=== PATIENT | male | born 1930 | race African-American/Black ===

== ENCOUNTER → 2016-09-07 | Outpatient (CLI) | payer MEDICARE, MEDICAID | END | disposition home or self-care (01) | LOC: LAB 07:43 | DX: E55.9 Vitamin D deficiency, unspecified (principal) | CPT/HCPCS: 82306 ==

== ENCOUNTER → 2016-12-02 | Outpatient (CLI) | payer MEDICARE, MEDICAID ==
[2016-12-02 14:16] LABS: Basophils # (auto) 0 uL; Basophils % (auto) 0.4 % (0.0-2.0); CONDITION Y; Eosinophils # (auto) 0.2 uL; Eosinophils % (auto) 3.8 % (0.0-7.0); Hematocrit 42.7 % (41.0-53.0); Hemoglobin 14.1 g/dL (13.5-17.5); Lymphocytes # (auto) 1.4 uL; Lymphocytes % (auto) 25.4 % (10.0-50.0); Mean Corpuscular Hemoglobin 31.1 pg (28.0-32.0); Mean Corpuscular Volume 94.3 fL (80.0-100.0); Mean Platelet Volume 9.6 fL (7.4-10.4); Monocytes # (auto) 0.7 uL; Monocytes % (auto) 13.5 % (0.0-12.0); Neutrophils # (auto) 3.1 uL; Neutrophils % (auto) 56.9 % (37.0-80.0); Platelet Count (auto) 227 10^3/uL (140-450); White Blood Cell 5.5 10^3/uL (4.4-10.8)
[2016-12-02 14:45] LABS: Albumin 3.9 g/dL (3.4-5.0); BUN/Creatinine Ratio 15.8; Bilirubin, Total 0.6 mg/dL (0.2-1.0); Potassium 4.2 mmol/L (3.5-5.1); Total Protein 7.7 g/dL (6.4-8.2)
== END | disposition home or self-care (01) ==
LOC: LAB 13:08
PROVIDERS: ATTEND Internal Medicine
DX: I10 Essential (primary) hypertension (principal); F11.20 Opioid dependence, uncomplicated
CPT/HCPCS: 36415; 80053; 80307; 85025

== ENCOUNTER → 2017-02-12 | Day surgery (SDC) | payer MEDICARE, MEDICAID ==
[2017-02-09 10:34] LABS: Basophils # (auto) 0 uL; Basophils % (auto) 0.9 % (0.0-2.0); Eosinophils # (auto) 0.2 uL; Eosinophils % (auto) 4.5 % (0.0-7.0); Hematocrit 42.4 % (41.0-53.0); Hemoglobin 14.1 g/dL (13.5-17.5); Lymphocytes # (auto) 1.4 uL; Mean Corpuscular Hemoglobin 31.5 pg (28.0-32.0); Mean Corpuscular Hgb Conc. 33.2 g/dL (32.0-36.0); Mean Corpuscular Volume 94.7 fL (80.0-100.0); Mean Platelet Volume 8.5 fL (6.9-10.8); Monocytes # (auto) 0.7 uL; Monocytes % (auto) 15.8 % (0.0-12.0); Neutrophils % (auto) 46.8 % (37.0-80.0); Nucleated Red Blood Cells % 0.1 %; Platelet Count (auto) 198 10^3/uL (140-450); Red Cell Distribution Width 13.9 % (11.8-14.3); White Blood Cell 4.3 10^3/uL (4.4-10.8)
[2017-02-09 13:02] LABS: INR 0.97 (0.9-1.15); Partial Thromboplastin Time 30.7 sec (22.64-33.71); Prothrombin Time 10.6 sec (9.37-12.3)
[~2017-02-12] VITALS: Ht 180.3 cm; Wt 83.5 kg
[~2017-02-12] MED LIST: ASPI81TA27 PO; BENA5TAB5 PO; CITA-77 PO; ERGO1CAP6 PO; HYDR-4663 PO; LIDOCAINE VISCOUS 2% 15ML UD ONE; SIMV-8 PO; SODIUM CHLORIDE LOCK 10 ML ONE; diphenhdrAMINE HCL 50 MG/1 ML VL ONE
[2017-02-12] MEDS: fentaNYL CITRATE 100 MCG/2 ML VL ONE ×2 (10:07→10:29)
[2017-02-12] MEDS: MIDAZOLAM HCL 5 MG/ML-1ML VIAL ONE ×2 (10:07→10:29)
[2017-02-12 11:08] VITALS: BP 127/66
== END | disposition home or self-care (01) ==
LOC: GI 09:30
PROVIDERS: ATTEND Internal Medicine Gastroenterology
DX: K64.8 Other hemorrhoids (principal); K20.9 Esophagitis, unspecified; K22.8 Other specified diseases of esophagus; C61 Malignant neoplasm of prostate
CPT/HCPCS: 36415; 43239; 43248; 45378; 85025; 85610; 85730; J1200; J2250; J3010; 99152

== ENCOUNTER → 2017-03-15 | Outpatient (CLI) | payer MEDICARE, MEDICAID ==
[~2017-03-15] MED LIST changes: -HYDR-4663 PO; +HYDR-4683 PO; -LIDOCAINE VISCOUS 2% 15ML UD ONE; -SODIUM CHLORIDE LOCK 10 ML ONE; -diphenhdrAMINE HCL 50 MG/1 ML VL ONE
== END | disposition home or self-care (01) ==
LOC: LAB 13:48
DX: M25.462 Effusion, left knee (principal); M06.9 Rheumatoid arthritis, unspecified; M00.9 Pyogenic arthritis, unspecified; M10.00 Idiopathic gout, unspecified site; I10 Essential (primary) hypertension; E11.9 Type 2 diabetes mellitus without complications
CPT/HCPCS: 87205; 89051; 89060

== ENCOUNTER → 2017-04-12 | Outpatient (CLI) | payer MEDICARE, MEDICAID ==
[2017-04-12 08:25] LABS: Albumin 3.6 g/dL (3.4-5.0); BUN/Creatinine Ratio 14.2; Bilirubin, Total 0.6 mg/dL (0.2-1.0); Calcium 8.6 mg/dL (8.5-10.1); Potassium 4.5 mmol/L (3.5-5.1); Total Protein 7.2 g/dL (6.4-8.2)
== END | disposition home or self-care (01) ==
LOC: LAB 07:39
PROVIDERS: ATTEND Internal Medicine
DX: I10 Essential (primary) hypertension (principal); N40.0 Benign prostatic hyperplasia without lower urinary tract symptoms
CPT/HCPCS: 36415; 80053; 82607; 84153

== ENCOUNTER → 2017-07-02 | Outpatient (CLI) | payer MEDICARE, MEDICAID ==
[2017-07-02 10:17] LABS: Basophils # (auto) 0 uL; Basophils % (auto) 0.3 % (0.0-2.0); Eosinophils # (auto) 0.1 uL; Hematocrit 42.6 % (41.0-53.0); Lymphocytes # (auto) 1.4 uL; Lymphocytes % (auto) 27.1 % (10.0-50.0); Mean Corpuscular Hemoglobin 30.8 pg (28.0-32.0); Mean Corpuscular Hgb Conc. 32.8 g/dL (32.0-36.0); Mean Corpuscular Volume 93.9 fL (80.0-100.0); Monocytes # (auto) 0.8 uL; Monocytes % (auto) 15.5 % (0.0-12.0); Neutrophils # (auto) 2.8 uL; Neutrophils % (auto) 55.1 % (37.0-80.0); Platelet Count (auto) 227 10^3/uL (140-450); Red Blood Cells 4.53 10^6/uL (4.5-5.90); Red Cell Distribution Width 13.3 % (11.8-14.3); White Blood Cell 5.1 10^3/uL (4.4-10.8)
[2017-07-02 13:48] LABS: Uric Acid 5.7 mg/dL (3.5-7.2)
[2017-07-02 14:12] LABS: Albumin 3.7 g/dL (3.4-5.0); BUN/Creatinine Ratio 14.4; Bilirubin, Total 0.6 mg/dL (0.2-1.0); Calcium 8.8 mg/dL (8.5-10.1); Potassium 4.2 mmol/L (3.5-5.1); Total Protein 7.6 g/dL (6.4-8.2)
== END | disposition home or self-care (01) ==
LOC: LAB 09:10
PROVIDERS: ATTEND Internal Medicine
DX: I10 Essential (primary) hypertension (principal); E78.00 Pure hypercholesterolemia, unspecified; R73.03 Prediabetes
CPT/HCPCS: 36415; 80053; 83036; 84550; 85025

== ENCOUNTER → 2017-11-16 | Outpatient (CLI) | payer MEDICARE, MEDICAID ==
[2017-11-16 14:26] LABS: Basophils # (auto) 0 uL; Basophils % (auto) 0.6 % (0.0-2.0); Eosinophils # (auto) 0.2 uL; Eosinophils % (auto) 3.3 % (0.0-7.0); Hematocrit 40.3 % (41.0-53.0); Hemoglobin 13.1 g/dL (13.5-17.5); Lymphocytes # (auto) 1.7 uL; Lymphocytes % (auto) 33.6 % (10.0-50.0); Mean Corpuscular Hemoglobin 30.5 pg (28.0-32.0); Mean Corpuscular Hgb Conc. 32.6 g/dL (32.0-36.0); Mean Corpuscular Volume 93.5 fL (80.0-100.0); Monocytes # (auto) 0.7 uL; Monocytes % (auto) 13.1 % (0.0-12.0); Neutrophils # (auto) 2.5 uL; Neutrophils % (auto) 49.4 % (37.0-80.0); Nucleated Red Blood Cells % 0.1 %; Platelet Count (auto) 179 10^3/uL (140-450); Red Blood Cells 4.31 10^6/uL (4.5-5.90); Red Cell Distribution Width 13.5 % (11.8-14.3)
[2017-11-16 14:59] LABS: Albumin 3.8 g/dL (3.4-5.0); Bilirubin, Total 0.4 mg/dL (0.2-1.0); Calcium 8.7 mg/dL (8.5-10.1); Potassium 4.4 mmol/L (3.5-5.1); Total Protein 7.2 g/dL (6.4-8.2)
[2017-11-16 15:37] LABS: Free T4 (Free Thyroxine) 0.95 ng/dL (0.89-1.76)
[2017-11-16 15:38] LABS: Prostate Specific Antigen 0.07 ng/mL (0.0-4.0)
== END | disposition home or self-care (01) ==
LOC: LAB 14:09
PROVIDERS: ATTEND Internal Medicine
DX: R63.4 Abnormal weight loss (principal); I12.9 Hypertensive chronic kidney disease with stage 1 through stage 4 chronic kidney disease, or unspecified chronic kidney disease; E11.22 Type 2 diabetes mellitus with diabetic chronic kidney disease; N18.3 Chronic kidney disease, stage 3 (moderate); E78.00 Pure hypercholesterolemia, unspecified; Z85.46 Personal history of malignant neoplasm of prostate
CPT/HCPCS: 36415; 80053; 84153; 84439; 84443; 85025; 85652

== ENCOUNTER → 2018-02-24 | Outpatient (CLI) | payer MEDICARE, MEDICAID ==
[2018-02-24 08:52] LABS: Basophils # (auto) 0 uL; Basophils % (auto) 0.5 % (0.0-2.0); Eosinophils # (auto) 0.1 uL; Eosinophils % (auto) 3.2 % (0.0-7.0); Hematocrit 41.6 % (41.0-53.0); Hemoglobin 13.7 g/dL (13.5-17.5); Lymphocytes # (auto) 1.2 uL; Lymphocytes % (auto) 28.8 % (10.0-50.0); Mean Corpuscular Hemoglobin 31.3 pg (28.0-32.0); Mean Corpuscular Hgb Conc. 32.9 g/dL (32.0-36.0); Mean Corpuscular Volume 95.1 fL (80.0-100.0); Monocytes # (auto) 0.6 uL; Monocytes % (auto) 14.8 % (0.0-12.0); Neutrophils # (auto) 2.3 uL; Neutrophils % (auto) 52.7 % (37.0-80.0); Nucleated Red Blood Cells % 0.1 %; Platelet Count (auto) 170 10^3/uL (140-450); Red Blood Cells 4.37 10^6/uL (4.5-5.90); Red Cell Distribution Width 13.5 % (11.8-14.3); White Blood Cell 4.3 10^3/uL (4.4-10.8)
[2018-02-24 08:55] LABS: Urine Bacteria NONE SEEN /hpf (None Seen); Urine Blood Negative /uL (Negative); Urine Specific Gravity 1.016 (1.001-1.035); Urine WBC <1 /hpf (0 - 3)
[2018-02-24 09:01] LABS: INR 0.98 (0.9-1.15); Prothrombin Time 10.5 sec (9.27-12.13)
[2018-02-24 09:13] LABS: Potassium 4.3 mmol/L (3.5-5.1)
[2018-02-24 09:19] LABS: Albumin 3.5 g/dL (3.4-5.0); BUN/Creatinine Ratio 16.6; Calcium 8.2 mg/dL (8.5-10.1)
[2018-02-24 09:28] LABS: Bilirubin, Total 1.2 mg/dL (0.2-1.0); Total Protein 7.4 g/dL (6.4-8.2)
== END | disposition home or self-care (01) ==
LOC: LAB 08:15
PROVIDERS: ATTEND Internal Medicine
DX: Z01.818 Encounter for other preprocedural examination (principal); E78.5 Hyperlipidemia, unspecified; E11.22 Type 2 diabetes mellitus with diabetic chronic kidney disease; I12.9 Hypertensive chronic kidney disease with stage 1 through stage 4 chronic kidney disease, or unspecified chronic kidney disease; N18.3 Chronic kidney disease, stage 3 (moderate); E78.00 Pure hypercholesterolemia, unspecified; Z85.46 Personal history of malignant neoplasm of prostate
CPT/HCPCS: 36415; 80053; 80061; 81001; 85025; 85610

== ENCOUNTER → 2018-05-31 | Outpatient (CLI) | payer MEDICARE, MEDICAID ==
[2018-05-31 09:09] LABS: Basophils # (auto) 0 uL; Basophils % (auto) 0.7 % (0.0-2.0); Eosinophils # (auto) 0.2 uL; Eosinophils % (auto) 5.7 % (0.0-7.0); Hematocrit 42.3 % (41.0-53.0); Lymphocytes # (auto) 1.2 uL; Lymphocytes % (auto) 26.7 % (10.0-50.0); Mean Corpuscular Hemoglobin 31.6 pg (28.0-32.0); Mean Corpuscular Hgb Conc. 33.1 g/dL (32.0-36.0); Mean Corpuscular Volume 95.5 fL (80.0-100.0); Monocytes # (auto) 0.6 uL; Monocytes % (auto) 14.4 % (0.0-12.0); Neutrophils # (auto) 2.3 uL; Neutrophils % (auto) 52.5 % (37.0-80.0); Nucleated Red Blood Cells % 0.1 %; Platelet Count (auto) 196 10^3/uL (140-450); Red Blood Cells 4.43 10^6/uL (4.5-5.90); Red Cell Distribution Width 13.6 % (11.8-14.3); White Blood Cell 4.3 10^3/uL (4.4-10.8)
[2018-05-31 09:29] LABS: Albumin 3.6 g/dL (3.4-5.0); Calcium 8.6 mg/dL (8.5-10.1); Potassium 4.6 mmol/L (3.5-5.1)
[2018-05-31 09:33] LABS: BUN/Creatinine Ratio 16.8; Bilirubin, Total 0.7 mg/dL (0.2-1.0); Total Protein 7.4 g/dL (6.4-8.2)
== END | disposition home or self-care (01) ==
LOC: LAB 08:51
PROVIDERS: ATTEND Internal Medicine
DX: I10 Essential (primary) hypertension (principal); R29.6 Repeated falls; E11.9 Type 2 diabetes mellitus without complications
CPT/HCPCS: 36415; 80053; 82550; 83036; 84439; 84443; 85025

== ENCOUNTER → 2018-09-30 | Outpatient (CLI) | payer MEDICARE, MEDICAID ==
[2018-09-30 08:58] LABS: Basophils # (auto) 0 uL; Basophils % (auto) 0.6 % (0.0-2.0); Eosinophils # (auto) 0.2 uL; Eosinophils % (auto) 4.7 % (0.0-7.0); Hematocrit 40.6 % (41.0-53.0); Hemoglobin 13.6 g/dL (13.5-17.5); Lymphocytes # (auto) 1.4 uL; Lymphocytes % (auto) 29.8 % (10.0-50.0); Mean Corpuscular Hemoglobin 31.4 pg (28.0-32.0); Mean Corpuscular Hgb Conc. 33.4 g/dL (32.0-36.0); Mean Corpuscular Volume 94.1 fL (80.0-100.0); Monocytes # (auto) 0.6 uL; Monocytes % (auto) 12.6 % (0.0-12.0); Neutrophils # (auto) 2.4 uL; Neutrophils % (auto) 52.3 % (37.0-80.0); Nucleated Red Blood Cells % 0.2 %; Platelet Count (auto) 151 10^3/uL (140-450); Red Blood Cells 4.31 10^6/uL (4.5-5.90); Red Cell Distribution Width 13.3 % (11.8-14.3); White Blood Cell 4.6 10^3/uL (4.4-10.8)
[2018-09-30 10:00] LABS: Potassium 4.3 mmol/L (3.5-5.1)
[2018-09-30 10:13] LABS: Albumin 3.7 g/dL (3.4-5.0); BUN/Creatinine Ratio 15.5; Bilirubin, Total 0.6 mg/dL (0.2-1.0); Calcium 8.8 mg/dL (8.5-10.1); Total Protein 7.2 g/dL (6.4-8.2)
== END | disposition home or self-care (01) ==
LOC: LAB 08:03
PROVIDERS: ATTEND Internal Medicine
DX: E11.9 Type 2 diabetes mellitus without complications (principal)
CPT/HCPCS: 36415; 80053; 83036; 85025

== ENCOUNTER → 2019-01-27 | Outpatient (CLI) | payer MEDICARE, MEDICAID ==
[~2019-01-27] MED LIST changes: +ASPI-404 PO; -ASPI81TA27 PO; -HYDR-4683 PO; +HYDR-4833 PO
[2019-01-27 09:27] LABS: Basophils # (auto) 0 uL; Basophils % (auto) 0.5 % (0.0-2.0); Eosinophils # (auto) 0.2 uL; Eosinophils % (auto) 4.9 % (0.0-7.0); Hematocrit 42.5 % (41.0-53.0); Lymphocytes # (auto) 1.2 uL; Lymphocytes % (auto) 30.5 % (10.0-50.0); Mean Corpuscular Hemoglobin 31.3 pg (28.0-32.0); Mean Corpuscular Volume 94.8 fL (80.0-100.0); Monocytes # (auto) 0.6 uL; Neutrophils % (auto) 50.1 % (37.0-80.0); Nucleated Red Blood Cells % 0.1 %; Platelet Count (auto) 175 10^3/uL (140-450); Red Blood Cells 4.48 10^6/uL (4.5-5.90); Red Cell Distribution Width 13.5 % (11.8-14.3); White Blood Cell 4.1 10^3/uL (4.4-10.8)
[2019-01-27 09:45] LABS: Albumin 3.7 g/dL (3.4-5.0); Calcium 8.7 mg/dL (8.5-10.1); Potassium 4.1 mmol/L (3.5-5.1)
[2019-01-27 09:51] LABS: Free T4 (Free Thyroxine) 0.9 ng/dL (0.89-1.76); Prostate Specific Antigen 0.07 ng/mL (0.0-4.0)
[2019-01-27 09:52] LABS: Bilirubin, Total 0.5 mg/dL (0.2-1.0); Total Protein 7.2 g/dL (6.4-8.2)
== END | disposition home or self-care (01) ==
LOC: LAB 08:38
PROVIDERS: ATTEND Internal Medicine
DX: E53.8 Deficiency of other specified B group vitamins (principal); E11.29 Type 2 diabetes mellitus with other diabetic kidney complication; Z79.899 Other long term (current) drug therapy
CPT/HCPCS: 36415; 80053; 80061; 82306; 82607; 83036; 84153; 84439; 84443; 85025; 85652

== ENCOUNTER 2019-02-23 09:02 | Inpatient (IN) | payer MEDICARE, MEDICAID ==
[~2019-02-23] VITALS: Ht 182.9 cm; Wt 76.3 kg
[2019-02-23] MEDS ORDERED: SODIUM CHLORIDE 0.9% 500 ML IVB ONE (09:28)
[2019-02-23 09:46] LABS: Basophils # (auto) 0 uL; Basophils % (auto) 0.5 % (0.0-2.0); Eosinophils # (auto) 0.2 uL; Eosinophils % (auto) 5.2 % (0.0-7.0); Hematocrit 43.4 % (41.0-53.0); Hemoglobin 14.5 g/dL (13.5-17.5); Lymphocytes # (auto) 1.3 uL; Lymphocytes % (auto) 30.9 % (10.0-50.0); Mean Corpuscular Hemoglobin 31.8 pg (28.0-32.0); Mean Corpuscular Hgb Conc. 33.5 g/dL (32.0-36.0); Mean Corpuscular Volume 94.9 fL (80.0-100.0); Monocytes # (auto) 0.5 uL; Neutrophils # (auto) 2.1 uL; Neutrophils % (auto) 50.4 % (37.0-80.0); Nucleated Red Blood Cells % 0.2 %; Platelet Count (auto) 180 10^3/uL (140-450); Red Blood Cells 4.57 10^6/uL (4.5-5.90); Red Cell Distribution Width 13.6 % (11.8-14.3); White Blood Cell 4.1 10^3/uL (4.4-10.8)
[2019-02-23 10:01] LABS: Albumin 3.7 g/dL (3.4-5.0); Anion Gap 4 (5-15); Blood Urea Nitrogen 22 mg/dL (7-18); Calcium 8.7 mg/dL (8.5-10.1); Carbon Dioxide 25 mmol/L (21-32); Chloride 110 mmol/L (98-107); Glucose 87 mg/dL (74-106); Potassium 4.3 mmol/L (3.5-5.1); Sodium 139 mmol/L (136-145)
[2019-02-23 10:06] LABS: Alanine Aminotransferase 11 U/L (16-61); Alkaline Phosphatase 132 U/L (45-117); Aspartate Aminotransferase 19 U/L (15-37); BUN/Creatinine Ratio 13.7; Bilirubin, Total 0.7 mg/dL (0.2-1.0); GFR African American 52 mL/min; GFR Non-African American 43 mL/min; Total Protein 7.6 g/dL (6.4-8.2)
[2019-02-23 12:44] LABS: Urine WBC None Seen /hpf (0 - 3)
[2019-02-23 12:51] LABS: Urine Bacteria NONE SEEN /hpf (None Seen); Urine Blood Negative /uL (Negative); Urine Specific Gravity 1.012 (1.001-1.035)
[2019-02-23] MEDS ORDERED: ONDANSETRON HCL 4 MG/2 ML VIAL IV PRN (14:45)
[2019-02-23] MEDS ORDERED: traMADol HCL 50 MG TAB PO PRN (14:45)
[2019-02-23] MEDS ORDERED: TEMAZEPAM 15 MG CAP PO PRN (14:45)
[2019-02-23] MEDS ORDERED: LACTULOSE 20Gm/30ML SOLN PO PRN (14:45)
[2019-02-23] MEDS ORDERED: MORPHINE SULF INJ 2 MG/ML SYRINGE 1ML IV PRN (14:45)
[2019-02-23] MEDS ORDERED: NITROGLYCERIN 0.4 MG SL TAB SL PRN (14:45)
[2019-02-23] MEDS ORDERED: ACETAMINOPHEN 500 MG TAB PO PRN (14:45)
--- NOTE | 2019-02-23 17:27 | NUR ---
Telemetry admit from ER DANIEL RAIN admitted to Telemetry unit after SBAR received. Patient oriented to TOI REESE RN primary RN, unit, room, bed, and unit policies regarding patient care and visiting hours. Patient now on continuous telemetry monitoring, tele box # 27 . Patient encouraged to call if they need something. All questions and concerns addressed, patient verbalized understanding.
[2019-02-23] MEDS: LABETALOL HCL 5 MG/ML ML 20ML VIAL IV PRN (17:58)
--- NOTE | 2019-02-23 18:36 | NUR ---
Re: Complaining of Nausea Patient complaining of nausea at this time. Brought patient some zofran for the nausea. However, patient refused medication.
--- NOTE | 2019-02-23 19:07 | NUR ---
Closing Shift Note Patient is resting in bed with visitors at bedside. Patient denies pain and nausea. Patient only feels dizzy when attempting to stand up. Report given to [employer] restaurant shift leader RN. Will endorse care to the restaurant shift leader RNTaj.
[2019-02-23 21:12] VITALS: BP 132/70
[2019-02-24 04:30] VITALS: BP 122/68
--- NOTE | 2019-02-24 05:10 | NUR ---
Scheduled EKG performed and placed in cardio tab of hard chart.
--- NOTE | 2019-02-24 07:30 | NUR ---
Opening Shift Note Assuming care of patient at this time. Patient is awake and alert. Patient denies pain. Patient shows no signs or symptoms of distress or shortness of breath. Bed is locked and lowered with bed alarm on. Instructed patient on the plan of care for today and to call for assistance as needed. Call light within reach. Will continue to round hourly and as needed.
[2019-02-24 09:00] VITALS: BP 149/78
[2019-02-24] MEDS ORDERED: ASPirin 81 mg TAB PO SCH (10:00)
[2019-02-24] MEDS: PANTOPRAZOLE 40 MG TAB PO SCH (10:24)
[2019-02-24] MEDS: ASPirin 81 mg TAB PO SCH (10:24)
[2019-02-24] MEDS: ENALAPRIL MALEATE 10 MG TAB PO SCH (10:25)
[2019-02-24] MEDS: ENOXAPARIN SOD 30 MG/0.3 ML SYRINGE SC SCH (10:28)
[2019-02-24 12:03] LABS: Cholesterol 129 mg/dL (< 200); Triglycerides 65 mg/dL (< 150)
[2019-02-24 12:06] LABS: HDL Cholesterol 57 mg/dL (40-59); LDL Cholesterol 68 mg/dL (< 100)
[2019-02-24 12:55] VITALS: BP 138/76
[2019-02-24 13:21] LABS: Folate (Folic Acid) 9.37 ng/mL (5.38-24)
--- NOTE | 2019-02-24 16:00 | NUR ---
Re: Cardiology Consult Dr. Rodriguez called at this time. Patient is a Dr. Santa patient. Dr. Rodriguez would like for Dr. Santa to be called instead. receptionist secretary aware.
[2019-02-24 17:00] VITALS: BP 124/74
--- NOTE | 2019-02-24 19:02 | NUR ---
Closing Shift Note Patient is resting in bed. Patient denies pain. Patient shows no signs or symptoms of distress. Report given to Taj claims processor RN. Will endorse care.
[2019-02-24 22:00] VITALS: BP 146/87
[2019-02-24] MEDS: ATORVASTATIN 20 MG TAB PO SCH (22:00)
[2019-02-25 05:44] VITALS: BP 126/70
--- NOTE | 2019-02-25 08:10 | NUR ---
OPENING SHIFT NOTE: PATIENT RESTING IN BED, EVEN AN UNLABORED RESPIRATIONS NOTED. FALL PRECAUTIONS IN PLACE. CALL LIGHT WITHIN REACH. WILL CONTINUE TO MONITOR.
[2019-02-25 09:00] VITALS: BP 138/73
[2019-02-25] MEDS: ASPirin 81 mg TAB PO SCH (09:08)
[2019-02-25] MEDS: ENOXAPARIN SOD 30 MG/0.3 ML SYRINGE SC SCH (09:08)
[2019-02-25] MEDS: ENALAPRIL MALEATE 10 MG TAB PO SCH (09:09)
[2019-02-25] MEDS: PANTOPRAZOLE 40 MG TAB PO SCH (09:09)
[2019-02-25] MEDS: CITALOPRAM HYDROBR 20 MG TAB PO SCH (09:10)
--- NOTE | 2019-02-25 11:08 | NUR ---
Nutrition Assessment Notes please see attached link for complete assessment Est. Needs BW [id number] kcal (25-30 kcal/kgBW), 62-77 gms pro (0.8-1.0 gms/kgBW r/t elev RFT CKD). Will continue to monitor pertinent labs and reassess nutrient need prn Addendum: 02/25/19 at [address] Amended: Links added.
[2019-02-25 13:00] VITALS: BP 143/88
--- NOTE | 2019-02-25 14:43 | NUR ---
CALLED. PASSWORD RECEIVED. UPDATED ON PLAN OF CARE.
[2019-02-25 17:00] VITALS: BP 127/74
--- NOTE | 2019-02-25 17:30 | NUR ---
CONSULT CALLED FOR MD MARIN BY THIS RN.
--- NOTE | 2019-02-25 18:24 | NUR ---
CLOSING SHIFT NOTE: PATIENT EATING DINNER AT SIDE OF THE BED. FAMILY AT BEDSIDE. BREATHING EVEN AND UNLABORED. UPDATED ON PLAN OF CARE, ADDRESSED CONCERNS. BED IN LOWEST LOCKED POSITION, AND CALL LIGHT WITHIN REACH. WILL ENDORSE CARE TO NOC RN.
--- NOTE | 2019-02-25 19:23 | NUR ---
CARE ENDORSED TO DEMI SUAZO.
--- NOTE | 2019-02-25 19:54 | NUR ---
Opening Shift Note Assumed care of patient, awake and alert. No S/S of distress/SOB or pain. Instructed on POC and to call for assist PRN, will continue to monitor for changes Q1hr and PRN.bed alarm on.
[2019-02-25] MEDS: ATORVASTATIN 20 MG TAB PO SCH (21:25)
[2019-02-25 21:32] VITALS: BP 163/87
[2019-02-25] MEDS: LABETALOL HCL 5 MG/ML ML 20ML VIAL IV PRN (21:33)
[2019-02-26 05:01] VITALS: BP 113/56
--- NOTE | 2019-02-26 07:03 | NUR ---
Report given to Ramila Rob, patient is resting no distress, no complaints of pain the whole night.
--- NOTE | 2019-02-26 07:12 | NUR ---
OPENING SHIFT NOTE: PATIENT ASLEEP IN BED. BREATHING EVEN AND UNLABORED. BED IN LOWEST LOCKED POSITION, WALKER AT BEDSIDE. CALL LIGHT WITHIN REACH. CARE BOARD UPDATED WITH PLAN OF CARE. WILL CONTINUE TO MONITOR.
--- NOTE | 2019-02-26 08:39 | NUR ---
MD Darrin FOLEY. UPDATED PATIENT ON PLAN FOR BUSINESS ACCOUNT MANAGER DR. MAYA TO CONSULT PATIENT TODAY. PATIENT VERBALIZED UNDERSTANDING.
[2019-02-26 09:00] VITALS: BP 131/57
[2019-02-26] MEDS: CITALOPRAM HYDROBR 20 MG TAB PO SCH (09:34)
[2019-02-26] MEDS: ASPirin 81 mg TAB PO SCH (09:34)
[2019-02-26] MEDS: PANTOPRAZOLE 40 MG TAB PO SCH (09:35)
[2019-02-26] MEDS: ENOXAPARIN SOD 30 MG/0.3 ML SYRINGE SC SCH (09:35)
[2019-02-26] MEDS: ENALAPRIL MALEATE 10 MG TAB PO SCH (09:35)
--- NOTE | 2019-02-26 12:20 | NUR ---
DR. MAYA AT BEDSIDE. NO ORDERS GIVEN AT THIS TIME.
--- NOTE | 2019-02-26 15:40 | NUR ---
MD MARIN ROUNDING.
[2019-02-26 16:50] VITALS: BP 134/74
--- NOTE | 2019-02-26 18:52 | NUR ---
CLOSING SHIFT NOTE: PATIENT RESTING IN BED. UPDATED FAMILY AND PATIENT ON PLAN OF CARE. EVEN AND UNLABORED RESPIRATIONS NOTED. WILL ENDORSE CARE TO NOC RN.
--- NOTE | 2019-02-26 19:25 | NUR ---
ENDORSED CARE TO BOWEN SUAZO.
--- NOTE | 2019-02-26 19:27 | NUR ---
Opening Shift Note Assumed care of patient, awake and alert. No S/S of distress/SOB or pain. Bed in lowest locked position, side rails up x2, call light within reach, bed alarm on. Instructed on POC and to call for assist PRN, will continue to monitor for changes Q1hr and PRN.
[2019-02-26] MEDS: ATORVASTATIN 20 MG TAB PO SCH (21:43)
[2019-02-26 22:00] VITALS: BP 123/63
[2019-02-27] VITALS (7 sets, daily range): BP systolic 112–125; BP diastolic 61–69
--- NOTE | 2019-02-27 07:40 | NUR ---
Closing Note Patient lying in bed, awake and alert. No s/s of distress. Bed in lowest locked position, side rails up x 2, call light within reach. Care endorsed to dayshift RN.
--- NOTE | 2019-02-27 08:00 | NUR ---
Opening Shift Note Assumed care of patient, comfortably sleeping. Breath sound seven and unlabored. No S/S of distress/SOB or pain noted. Bed at lowest locked position and call light within reach. Will continue to monitor for changes Q1hr and PRN.
--- NOTE | 2019-02-27 10:31 | NUR ---
PT Patient not in the room during morning PT visit. RN said he was brought down for an MRI. Addendum: 02/27/19 at 1032 by NICOL CARRANZA PTT Amended: Links added.
[2019-02-27] MEDS: CITALOPRAM HYDROBR 20 MG TAB PO SCH (11:19)
[2019-02-27] MEDS: ASPirin 81 mg TAB PO SCH (11:19)
[2019-02-27] MEDS: ENOXAPARIN SOD 30 MG/0.3 ML SYRINGE SC SCH (11:19)
[2019-02-27] MEDS: PANTOPRAZOLE 40 MG TAB PO SCH (11:20)
[2019-02-27] MEDS: ENALAPRIL MALEATE 10 MG TAB PO SCH (11:20)
--- NOTE | 2019-02-27 16:54 | NUR ---
assessment Patient is a 88 year old male who is alert and oriented. Patient is a little forgetful of names and dates. Prior to admission patient lived home with family and functioned with assistance. Per patient he will return home to his prior living arrangements post discharge and one of his children will transport him home. Patient does not remember the name of his PCP. Patient has good family support. Patient feels safe returning home on discharge. Patient may benefit from home health PT and safety on discharge. I informed patient he has a right to speak to a manager social regarding all care. I informed patient he has a right to participate in any and all discharge planning. Patient has a POA and advanced directive. Patient verbalized understanding and agreed to discharge plan. Addendum: 02/27/19 at 1659 by Elena MATAMOROS Amended: Links added.
--- NOTE | 2019-02-27 18:40 | NUR ---
Dr. Santa at bedside.
--- NOTE | 2019-02-27 19:25 | NUR ---
Opening Shift Note Received report from Devi SUAZO. Assumed care of patient, awake and alert. No S/S of distress/SOB or pain. Instructed on POC and to call for assist PRN. Fall precaution measures in place, will continue to monitor for changes Q1hr and PRN.
[2019-02-27] MEDS: ATORVASTATIN 20 MG TAB PO SCH (22:06)
[2019-02-28] VITALS (7 sets, daily range): BP systolic 102–136; BP diastolic 50–85
--- NOTE | 2019-02-28 07:30 | NUR ---
Opening Shift Note Assumed care of patient, comfortably sleeping, on room air, breath sounds even and unlabored. No S/S of distress/SOB or pain noted. Bed at lowest locked position and call light within reach. Will continue to monitor for changes Q1hr and PRN.
[2019-02-28 09:18] LABS: Basophils # (auto) 0 uL; Basophils % (auto) 0.5 % (0.0-2.0); Eosinophils # (auto) 0.2 uL; Eosinophils % (auto) 3.7 % (0.0-7.0); Hematocrit 45.4 % (41.0-53.0); Hemoglobin 15.3 g/dL (13.5-17.5); Lymphocytes # (auto) 1.1 uL; Lymphocytes % (auto) 22.8 % (10.0-50.0); Mean Corpuscular Hemoglobin 31.9 pg (28.0-32.0); Mean Corpuscular Hgb Conc. 33.7 g/dL (32.0-36.0); Mean Corpuscular Volume 94.9 fL (80.0-100.0); Monocytes # (auto) 0.7 uL; Monocytes % (auto) 14.4 % (0.0-12.0); Neutrophils # (auto) 2.8 uL; Neutrophils % (auto) 58.6 % (37.0-80.0); Nucleated Red Blood Cells % 0.2 %; Platelet Count (auto) 175 10^3/uL (140-450); Red Blood Cells 4.79 10^6/uL (4.5-5.90); Red Cell Distribution Width 13.4 % (11.8-14.3); White Blood Cell 4.8 10^3/uL (4.4-10.8)
--- NOTE | 2019-02-28 09:24 | NUR ---
Paged for Dr. Santa regarding patient's label paster procedure.
[2019-02-28 09:34] LABS: INR 0.99 (0.9-1.15); Partial Thromboplastin Time 29.9 sec (23.64-32.05)
[2019-02-28 09:40] LABS: BUN/Creatinine Ratio 19.1; Calcium 8.8 mg/dL (8.5-10.1); Potassium 4.4 mmol/L (3.5-5.1)
[2019-02-28] MEDS: PANTOPRAZOLE 40 MG TAB PO SCH (09:49)
[2019-02-28] MEDS: CITALOPRAM HYDROBR 20 MG TAB PO SCH (09:49)
[2019-02-28] MEDS: ENALAPRIL MALEATE 10 MG TAB PO SCH (09:50)
[2019-02-28] MEDS: ASPirin 81 mg TAB PO SCH (09:51)
[2019-02-28] MEDS: ENOXAPARIN SOD 30 MG/0.3 ML SYRINGE SC SCH (09:51)
--- NOTE | 2019-02-28 12:23 | NUR ---
Nutrition Follow-up Notes Wt.: 74.8 kg as of yesterday. Pt's sitting up on bed, eating breakfast, immediate family members at bedside, denies any discomfort during rounds this morning. 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 Pt's usually has good appetite eat meals regularly, NKFA and not into any special diets boat captain. Pt's on 2 gms Na diet with , Low Chol, Low Fat diet with adequate PO intake aeb 90% ave. consumed meals (x6) in last 2.5 days. Provide verbal and written nutrition educ. re: current therapeutic diet and he verbalized understanding.Noted pt's now NPO for a procedure today with active Neurology and Cardiology consults. Est. Needs BW [id number] kcal (25-30 kcal/kgBW), 62-77 gms pro (0.8-1.0 gms/kgBW r/t elev RFT CKD). Will continue to monitor pertinent labs and reassess nutrient need prn Labs: Pertinent labs wnl except for BUN 33 H, Cr 1.73 H Skin: Naveen scale 19, low risk, skin intact per drafter electrical. GI: Pt had 2x BM 02/25/19 per drafter electrical. PES: Increased nutrient needs r/t current/chronic medical/nutritional status aeb 91% IBW, BMI 22.4 kg/m2, decreased muscle mass, NPO. Altered nutrition related lab values r/t current/chronic medical condition aeb elev RFT Will continue to monitor NPO status, skin status, pertinent labs and weight trend. F/u in 2 to 3 days. Rec.: 1.) Resume oral diet (Cardiac: 2 gms Na, Low Chol, Low Fat diet) when medically appropriate. 2.) If pt's PO intake inadequate (<75%), consider Ensure Enlive 1 carton BID. 3.) Refer pt to RD for further nutrition education and weight monitoring upon discharge. 4.) Continue current plan of care
[2019-02-28] MEDS ORDERED: LIDOCAINE 2%HCL (LOCAL ANESTH.) INJ 20ML MDV ONE (13:18)
[2019-02-28] MEDS ORDERED: ceFAZolin 1GM/50ML 50 ML IV ONE ×2 (13:34→21:00)
[2019-02-28] MEDS ORDERED: VANCOMYCIN HCL 1000 MG VL ONE (13:35)
[2019-02-28] MEDS ORDERED: MIDAZOLAM HCL 1MG/1ML-2 ML VIAL ONE (13:35)
[2019-02-28] MEDS ORDERED: fentaNYL CITRATE 100 MCG/2 ML VL ONE (13:35)
[2019-02-28] MEDS ORDERED: VANCOMYCIN 1GM/250ML 250 ML IV ONE (13:36)
--- NOTE | 2019-02-28 18:56 | NUR ---
closing note Patient is sitting up in bed having dinner, left arm is resting nicely on a sling, no c/o pain. No s/s of distress/SOB stated. Bed at lowest locked position, bed side rails up x2 and call light within reach.
--- NOTE | 2019-02-28 19:15 | NUR ---
Opening Shift Note received report from Devi SUAZO. Assumed care of patient, awake and alert. No S/S of distress/SOB or pain. Instructed on POC and to call for assist PRN. Fall precaution measures in place, will continue to monitor for changes Q1hr and PRN.
[2019-02-28] MEDS: ATORVASTATIN 20 MG TAB PO SCH (21:37)
[2019-03-01] MEDS ORDERED: VANCOMYCIN 1GM/250ML 250 ML IV ONE (03:00)
[2019-03-01] MEDS ORDERED: ceFAZolin 1GM/50ML 50 ML IV ONE ×2 (05:00→13:20)
[2019-03-01 06:00] VITALS: BP 130/77
[2019-03-01 08:00] VITALS: BP 126/80
--- NOTE | 2019-03-01 08:08 | NUR ---
RECEIVED CALL FROM RADIOLOGY DR GANN PATIENT HAS NEW PNEUMOTHORAX WILL LET ATTENDING KNOW.
--- NOTE | 2019-03-01 08:25 | NUR ---
CALLED DR RUBIO TO ADVISE OF NEW PNEUMOTHORAX. PATIENT PLACED ON 4 LC NC NO SIGNS AND SYMPTOMS OF DISTRESS NOTED AT THIS TIME. OZ SATURATION IS 94 ON ROOM AIR AND 98 % ON 4 LITERS. PATIENT SITTING UP AT BEDSIDE EATING BREAKFAST.
[2019-03-01 09:00] VITALS: BP 126/80
[2019-03-01] MEDS: ENALAPRIL MALEATE 10 MG TAB PO SCH (10:00)
[2019-03-01] MEDS: ASPirin 81 mg TAB PO SCH (10:00)
[2019-03-01] MEDS: ENOXAPARIN SOD 30 MG/0.3 ML SYRINGE SC SCH (10:00)
[2019-03-01] MEDS: CITALOPRAM HYDROBR 20 MG TAB PO SCH (10:00)
[2019-03-01] MEDS: PANTOPRAZOLE 40 MG TAB PO SCH (10:00)
--- NOTE | 2019-03-01 12:45 | NUR ---
PATIENT TAKEN DOWN TO PRE OP NO SIGNS AND SYMPTOMS OF DISTRESS NOTED.
[2019-03-01] MEDS ORDERED: MIDAZOLAM HCL 1MG/1ML-2 ML VIAL ONE (14:07)
[2019-03-01] MEDS ORDERED: fentaNYL CITRATE 100 MCG/2 ML VL ONE (14:07)
[2019-03-01] MEDS ORDERED: METOCLOPRAMIDE HCL 5MG/ml INJ 2ml VIAL ONE (14:08)
--- NOTE | 2019-03-01 14:27 | NUR ---
PT OUT IN PROCEDURE @ 1300 UNABLE TO OBTAIN VITALS
[2019-03-01 17:00] VITALS: BP 116/62
--- NOTE | 2019-03-01 19:30 | NUR ---
Opening Shift Note Assumed care of patient. Patient is awake and alert. No S/S of distress/SOB or pain. Chest tube intact, patent and draining. Chest tube and pacemaker dressing intact with minimal drainage noted. Instructed on POC and to call for assist PRN, will continue to monitor for changes. Bed locked in lowest position and bed rails up x2. Call light within reach.
[2019-03-01] MEDS: ATORVASTATIN 20 MG TAB PO SCH (21:32)
[2019-03-01 21:41] VITALS: BP 125/63
--- NOTE | 2019-03-02 03:00 | NUR ---
65ml of drainage from chest tube
[2019-03-02 05:17] VITALS: BP 127/71
--- NOTE | 2019-03-02 07:40 | NUR ---
Opening Shift Note Assumed care of patient. Patient is awake and alert. No S/S of distress/SOB or pain. Chest tube intact, patent and draining. Chest tube and pacemaker dressing intact with minimal drainage noted. Bed locked in lowest position and bed rails up x2. Call light within reach. Instructed on POC and to call for assist PRN, will continue to monitor for changes.
[2019-03-02 08:00] VITALS: BP 120/70
[2019-03-02 09:13] VITALS: BP 120/70
[2019-03-02] MEDS: ASPirin 81 mg TAB PO SCH (09:29)
[2019-03-02] MEDS: ENOXAPARIN SOD 30 MG/0.3 ML SYRINGE SC SCH (09:29)
[2019-03-02] MEDS: PANTOPRAZOLE 40 MG TAB PO SCH (09:59)
[2019-03-02] MEDS: CITALOPRAM HYDROBR 20 MG TAB PO SCH (09:59)
[2019-03-02] MEDS: ENALAPRIL MALEATE 10 MG TAB PO SCH (10:00)
[2019-03-02 13:00] VITALS: BP 118/67
--- NOTE | 2019-03-02 14:19 | NUR ---
Nutrition Follow-up Notes Wt.: 76.5 kg as of yesterday. Pt's s/p chest tube insertion yesterday, on oxygen via nasal cannula, asleep, no signs of distress noted when rounded this morning. Pt remains NPO, per nursing, noted for active Surgical consult. Est. Needs BW [id number] kcal (25-30 kcal/kgBW), 62-77 gms pro (0.8-1.0 gms/kgBW r/t elev RFT CKD). Will continue to monitor pertinent labs and reassess nutrient need prn Labs: No new labs since 02/28/19 Pertinent labs wnl except for BUN 33 H, Cr 1.73 H Skin: Naveen scale 16, mod risk, pt's medial chest incision dry and intact per clinical documentation spec. GI: Pt had 1x BM 03/01/19 per clinical documentation spec. PES: Resolved: Increased nutrient needs r/t current/chronic medical/nutritional status aeb 91% IBW, BMI 22.4 kg/m2, decreased muscle mass, NPO. Altered nutrition related lab values r/t current/chronic medical condition aeb elev RFT Will continue to monitor NPO status, skin status, pertinent labs and weight trend. F/u in 2 to 3 days. Rec.: 1.) Resume oral diet (Cardiac: 2 gms Na, Low Chol, Low Fat diet) when medically appropriate. 2.) If pt's PO intake inadequate (<75%), consider Ensure Enlive 1 carton BID. 3.) Consider to continue monitoring pertinent labs prn. 4.) Refer pt to RD for further nutrition education and weight monitoring upon discharge. 5.) Continue current plan of care
[2019-03-02 17:00] VITALS: BP 114/61
--- NOTE | 2019-03-02 19:00 | NUR ---
CHEST TUBE DRAINAGE OUTPUT 40ML.
--- NOTE | 2019-03-02 19:51 | NUR ---
Opening Shift Note Assumed care of patient, awake and alert. No S/S of distress/SOB or pain. Instructed on POC and to call for assist PRN, will continue to monitor for changes Q1hr and PRN.Chest tube in placed, dressing dry and intact in the left side of chest.
[2019-03-02] MEDS: ATORVASTATIN 20 MG TAB PO SCH (21:23)
[2019-03-02 21:30] VITALS: BP 116/64
[2019-03-03 05:00] VITALS: BP 120/67
--- NOTE | 2019-03-03 07:09 | NUR ---
Report given to Ramila Gudino ,patient is resting no distress.
[2019-03-03 07:45] VITALS: BP 128/77
--- NOTE | 2019-03-03 08:45 | NUR ---
Received call from Doctor Blood, wants to continue suction with chest tube (per orders) until Wednesday and have a repeat chest x-ray Wednesday.
[2019-03-03 09:00] VITALS: BP 128/77
[2019-03-03] MEDS: CITALOPRAM HYDROBR 20 MG TAB PO SCH (09:47)
[2019-03-03] MEDS: PANTOPRAZOLE 40 MG TAB PO SCH (09:47)
[2019-03-03] MEDS: ENALAPRIL MALEATE 10 MG TAB PO SCH (09:52)
[2019-03-03] MEDS: ASPirin 81 mg TAB PO SCH (10:00)
[2019-03-03] MEDS: ENOXAPARIN SOD 30 MG/0.3 ML SYRINGE SC SCH (10:00)
--- NOTE | 2019-03-03 12:00 | NUR ---
PATIENT NONCOMPLIANT WITH POST OP PROTCOL V/S. Addendum: 03/03/19 at 1928 by MAYE OLIVAS RN RN wrong patient
--- NOTE | 2019-03-03 12:05 | NUR ---
PATIENT ASKED IF HE COULD SHOWER, PER DOCTOR RUBIO PATIENT IS NOT ALLOWED TO SHOWER, PATIENT STATED HE DOESN'T CARE AND WILL SHOWER ANY WAYS. PATIENT NONCOMPLIANT. Addendum: 03/03/19 at 1930 by MAYE OLIVAS RN RN wrong patient.
[2019-03-03 13:00] VITALS: BP 121/62
[2019-03-03 17:00] VITALS: BP 126/72
--- NOTE | 2019-03-03 19:20 | NUR ---
CHEST TUBE DRAINAGE OUTPUT 35ML.
[2019-03-03] MEDS: ATORVASTATIN 20 MG TAB PO SCH (21:37)
[2019-03-03 22:00] VITALS: BP 123/71
[2019-03-04 05:00] VITALS: BP 122/73
--- NOTE | 2019-03-04 06:56 | NUR ---
Report given Lewis Greenbergpatient is resting no complaints of any distress the whole night. Addendum: 03/04/19 at 0725 by Alyson Long RN Report given to Ramila Saenz, angelito Ruiz
--- NOTE | 2019-03-04 08:00 | NUR ---
PT RESTING IN BED, NO DISTRESS NOTED. PT REPORTS NO PAIN AT THIS TIME. SNEHA CHEST PACEMAKER INCISION SITE SHOWS MINIMAL SANGUINOUS DRAINAGE, CHEST TUBE INCISION SITE SHOWS MINIMAL YELLOW SANGUINOUS DRAINAGE. APPROX 183 MLS SANGUINOUS DRAINAGE NOTED IN CHEST TUBE. CHEST TUBING CONNECTED TO ALL PORTS AND TO SUCTION. PT VOIDED ON CHUCKS. PT NERY AREA CLEANED AND CHUCKS CHANGED. BED ALARM ON , CALL LIGHT IN REACH, WILL CONTINUE TO MONITOR.
[2019-03-04 09:00] VITALS: BP 140/79
[2019-03-04] MEDS: CITALOPRAM HYDROBR 20 MG TAB PO SCH (10:39)
[2019-03-04] MEDS: PANTOPRAZOLE 40 MG TAB PO SCH (10:39)
[2019-03-04] MEDS: ASPirin 81 mg TAB PO SCH (10:40)
[2019-03-04] MEDS: ENALAPRIL MALEATE 10 MG TAB PO SCH (10:41)
[2019-03-04] MEDS: ENOXAPARIN SOD 30 MG/0.3 ML SYRINGE SC SCH (10:43)
--- NOTE | 2019-03-04 11:30 | NUR ---
Nutrition Follow-up Notes Wt.: 77.0 kg Pt's s/p chest tube insertion, sleeping no family by bedside. pt with no signs of distress noted when rounded this morning. Pt`s currently on 2 gm na diet with adequate PO of 75% x 5 per RN doc Est. Needs BW [id number] kcal (25-30 kcal/kgBW), 62-77 gms pro (0.8-1.0 gms/kgBW r/t elev RFT CKD). Will continue to monitor pertinent labs and reassess nutrient need prn Labs: BUN 33 H, CREAT 1.73 H Skin: Naveen scale 18, mod risk, pt's medial chest incision dry and intact per chief scientific officer. GI: Pt had 1x BM 03/03/19 per chief scientific officer. PES: Resolved: Increased nutrient needs r/t current/chronic medical/nutritional status aeb 91% IBW, BMI 22.4 kg/m2, decreased muscle mass, NPO. Altered nutrition related lab values r/t current/chronic medical condition aeb elev RFT Will continue to monitor PO intake, skin status, pertinent labs and weight trend. F/u in 3-5 days. Rec.: 1.) Consider to continue monitoring pertinent labs prn. 2.) Refer pt to RD for further nutrition education and weight monitoring upon discharge. 3.) Continue current plan of care
--- NOTE | 2019-03-04 12:09 | NUR ---
PATIENT WALKED IN HALLWAY WITH PHYSICAL THERAPY AND WALKER.
[2019-03-04 13:00] VITALS: BP 128/75
[2019-03-04 17:12] VITALS: BP 125/64
--- NOTE | 2019-03-04 19:05 | NUR ---
PT CHEST TUBE OUT PUT WAS 183 MLS AT BEGINNING OF SHIFT. OUTPUT AT END OF SHIFT 187. 4 MLS TOTAL DRAINAGE ON SHIFT.
[2019-03-04] MEDS: ATORVASTATIN 20 MG TAB PO SCH (21:03)
[2019-03-04 21:24] VITALS: BP 114/69
[2019-03-05 05:04] VITALS: BP 139/74
--- NOTE | 2019-03-05 07:46 | NUR ---
Opening Shift Note: Assumed care of patient, patient asleep. NC O2 in place, at 4 LMP. No S/S of distress/SOB or pain. Bed in lowest locked position, side rails up x 2, call light within reach. Patient will be instructed on POC and to call for assist PRN, will continue to monitor for changes Q1hr and PRN.
--- NOTE | 2019-03-05 08:20 | NUR ---
Dr. Fry at bedside. Discussed POC with patient. Will continue to monitor patient.
[2019-03-05 09:00] VITALS: BP 126/72
[2019-03-05] MEDS: ENOXAPARIN SOD 30 MG/0.3 ML SYRINGE SC SCH (09:30)
[2019-03-05] MEDS: ASPirin 81 mg TAB PO SCH (09:31)
[2019-03-05] MEDS: ENALAPRIL MALEATE 10 MG TAB PO SCH (09:31)
[2019-03-05] MEDS: PANTOPRAZOLE 40 MG TAB PO SCH (09:31)
[2019-03-05] MEDS: CITALOPRAM HYDROBR 20 MG TAB PO SCH (09:32)
--- NOTE | 2019-03-05 11:52 | NUR ---
Patient ambulated the martinez with physical therapy. Patient tolerated well. Will continue to monitor.
[2019-03-05 13:00] VITALS: BP 108/62
[2019-03-05 17:00] VITALS: BP 110/60
--- NOTE | 2019-03-05 19:05 | NUR ---
25 ML OUT FROM CHEST TUBE DURING DAY SHIFT.
--- NOTE | 2019-03-05 20:00 | NUR ---
Opening Shift Note: A&Ox4, with periods of forgetfulness. Currently on 4LO2 via NC, does not wear at home; pain level 9/10 headache; and currently bedrest; at baseline uses a wheelchair. Bed locked in lowest position, side rails up x2, call light within reach, and bed alarm on for patient safety. IV right forearm 22 g IID inserted on 03/02/19. Skin: pressure area found on sacral area: picture taken for reference and optifoam dressing applied. Will place WC consult. Patient is s/p pacemaker insertion by Dr. Santa on 02/28/19 and s/p chest tube insertion for pneumothorax by Dr. Blood on 03/02/19. Sling on left arm present. POC discussed and questions answered. Will continue to round prn and reposition Q2H.
[2019-03-05 21:04] VITALS: BP 129/72
[2019-03-05] MEDS: ATORVASTATIN 20 MG TAB PO SCH (21:54)
[2019-03-06 04:57] VITALS: BP 111/68
--- NOTE | 2019-03-06 06:30 | NUR ---
Chest tube output 70 ml. Patient states no pain or SOB at this time.
--- NOTE | 2019-03-06 07:22 | NUR ---
Opening Shift Note: Assumed care of patient, awake and alert. No S/S of distress/SOB or pain. Patient states no pain, 0/10. Chest tube set to continuous suction, 20 cm. Bed in lowest locked position, side rails up x 2, call light within reach. Patient instructed on POC and to call for assist PRN, will continue to monitor for changes Q1hr and PRN.
--- NOTE | 2019-03-06 07:42 | NUR ---
Patient off unit for xray.
--- NOTE | 2019-03-06 08:01 | NUR ---
Patient back to unit, in bed. Patient tolerated well. Patient placed back on 4 L NC. Chest tube connected to suction.
--- NOTE | 2019-03-06 08:07 | NUR ---
Patient ambulates with assistance. Addendum: 03/06/19 at 1206 by PERCY ROBERTSON RN RN Amended: Links added.
[2019-03-06 09:00] VITALS: BP 119/65
[2019-03-06] MEDS: ASPirin 81 mg TAB PO SCH (09:55)
[2019-03-06] MEDS: ENALAPRIL MALEATE 10 MG TAB PO SCH (09:55)
[2019-03-06] MEDS: ENOXAPARIN SOD 30 MG/0.3 ML SYRINGE SC SCH (09:55)
[2019-03-06] MEDS: PANTOPRAZOLE 40 MG TAB PO SCH (09:56)
[2019-03-06] MEDS: CITALOPRAM HYDROBR 20 MG TAB PO SCH (09:56)
--- NOTE | 2019-03-06 10:15 | NUR ---
Dr. Blood at bedside. Removed chest tube. Patient tolerated well. Covered with gauze and Tegaderm. Will continue to monitor patient.
--- NOTE | 2019-03-06 12:25 | NUR ---
WOUND CARE NOTE: Wound care consult placed by nursing for possible pressure injury to coccyx. Patient is an 88 yo male admitted for TIA/Dizziness on 02/23/2019. Patient with a history of dyslipidemia, chronic kidney disease, vascular disease and dementia. Patient is alert and denies pain. Last Naveen score is 14. Per bedside RNBobbi, patient is to discharge home today. Patient is found sitting up in chair. Patient is able to stand up. Photographs taken of gluteal cleft where a small skin tear measuring 2x0.5cm and is shallow and red. Patient states that he spends a lot of time during day up in chair. Provided patient and spouse at bedside pressure relieving strategies and wound care options for home. Sacral foam dressing reapplied. Addendum: 03/06/19 at 1813 by JUNAID TRUJILLO RN Amended: Links added.
[2019-03-06 13:00] VITALS: BP 96/57
--- NOTE | 2019-03-06 13:54 | NUR ---
IV removal: IV DC'd with clean sterile technique, catheter fully intact. Pressure dressing applied to site. Patient tolerated well.
== END 2019-03-06 14:08 | disposition home or self-care (01) | DRG 243 ==
LOC: EDBD 09:02 → ER 09:02 → TELE 09:03 → TELE-CENTR 17:29
PROVIDERS: ADMIT Internal Medicine; ATTEND Family Medicine
PROC: 0JH606Z Insertion of Pacemaker, Dual Chamber into Chest Subcutaneous Tissue and Fascia, Open Approach (ICD-10-PCS; principal; 2019-02-28)
PROC: 02HK3JZ Insertion of Pacemaker Lead into Right Ventricle, Percutaneous Approach (ICD-10-PCS; 2019-02-28)
PROC: 02H63JZ Insertion of Pacemaker Lead into Right Atrium, Percutaneous Approach (ICD-10-PCS; 2019-02-28)
PROC: 0W9B00Z Drainage of Left Pleural Cavity with Drainage Device, Open Approach (ICD-10-PCS; 2019-03-01)
DX: R00.1 Bradycardia, unspecified (principal); N17.9 Acute kidney failure, unspecified; J93.9 Pneumothorax, unspecified; J90 Pleural effusion, not elsewhere classified; G45.9 Transient cerebral ischemic attack, unspecified; E78.5 Hyperlipidemia, unspecified; N18.3 Chronic kidney disease, stage 3 (moderate); I25.10 Atherosclerotic heart disease of native coronary artery without angina pectoris; I13.10 Hypertensive heart and chronic kidney disease without heart failure, with stage 1 through stage 4 chronic kidney disease, or unspecified chronic kidney disease; E11.22 Type 2 diabetes mellitus with diabetic chronic kidney disease; R26.9 Unspecified abnormalities of gait and mobility; E78.00 Pure hypercholesterolemia, unspecified; F03.90 Unspecified dementia, unspecified severity, without behavioral disturbance, psychotic disturbance, mood disturbance, and anxiety; H54.61 Unqualified visual loss, right eye, normal vision left eye; Z79.82 Long term (current) use of aspirin; Z79.899 Other long term (current) drug therapy; Z82.49 Family history of ischemic heart disease and other diseases of the circulatory system; Z83.3 Family history of diabetes mellitus; Z95.0 Presence of cardiac pacemaker
CPT/HCPCS: 33208; 36415; 70450; 71045; 71046; 80048; 80053; 80061; 81001; 82550; 82607; 82746; 82962; 83735; 84443; 84484; 85025; 85610; 85652; 85730; 93005; 93306; 93886; 94761; 96360; 97110; 97116; 97530; 99152; 99153; 99291; C1785; G0378; J0690; J2250; J2405

== ENCOUNTER → 2019-10-04 | Outpatient (CLI) | payer MEDICARE, MEDICAID ==
[~2019-10-04] VITALS: Ht 185.4 cm; Wt 99.8 kg
[~2019-10-04] MED LIST changes: +ADENOSINE 68 MG in GIVE UN-DILUTED 0 ML IV ONE; +ADENOSINE 90 MG/30 ML INJ IV ONE
== END | disposition home or self-care (01) ==
LOC: Rad HDHVI 09:32
PROVIDERS: ATTEND Internal Medicine Cardiovascular Disease
DX: E78.00 Pure hypercholesterolemia, unspecified (principal); I10 Essential (primary) hypertension; Z95.0 Presence of cardiac pacemaker
CPT/HCPCS: 78452; 93005; 96374; 96375; A9500; J0153

== ENCOUNTER 2019-11-11 16:43 | Emergency (ER) | payer MEDICARE, MEDICAID ==
[~2019-11-11] VITALS: Ht 175.3 cm; Wt 77.1 kg
[~2019-11-11 16:43] MED LIST changes: -ADENOSINE 68 MG in GIVE UN-DILUTED 0 ML IV ONE; -ADENOSINE 90 MG/30 ML INJ IV ONE
[2019-11-11 16:50] VITALS: BP 150/90
[2019-11-11] MEDS ORDERED: MAGNESIUM CITRATE SOLUTION 300 ML BTL PO ONE (19:45)
[2019-11-11 21:02] LABS: Basophils # (auto) 0 10 ^3/uL (0-0.2); Basophils % (auto) 0.2 % (0.0-2.0); Eosinophils # (auto) 0 10 ^3/uL (0-0.8); Eosinophils % (auto) 0.2 % (0.0-7.0); Hematocrit 46.9 % (41.0-53.0); Hemoglobin 15.5 g/dL (13.5-17.5); Lymphocytes # (auto) 0.8 10 ^3/uL (0.4-5.4); Lymphocytes % (auto) 7.3 % (10.0-50.0); Mean Corpuscular Hgb Conc. 33.1 g/dL (32.0-36.0); Mean Corpuscular Volume 93.7 fL (80.0-100.0); Monocytes % (auto) 9.2 % (0.0-12.0); Neutrophils % (auto) 83.1 % (37.0-80.0); Platelet Count (auto) 190 10^3/uL (140-450); Red Blood Cells 5.01 10^6/uL (4.5-5.90); Red Cell Distribution Width 13.2 % (11.8-14.3); White Blood Cell 10.8 10^3/uL (4.4-10.8)
[2019-11-11 21:20] LABS: Albumin 3.7 g/dL (3.4-5.0); Anion Gap 9 (5-15); Blood Urea Nitrogen 29 mg/dL (7-18); Calcium 8.8 mg/dL (8.5-10.1); Carbon Dioxide 21 mmol/L (21-32); Chloride 106 mmol/L (98-107); Glucose 115 mg/dL (74-106); Potassium 4.3 mmol/L (3.5-5.1); Sodium 136 mmol/L (136-145)
[2019-11-11 21:21] LABS: BUN/Creatinine Ratio 15.8; GFR African American 45 mL/min; GFR Non-African American 37 mL/min
[2019-11-11 21:27] LABS: Alanine Aminotransferase 15 U/L (16-61); Alkaline Phosphatase 138 U/L (45-117); Aspartate Aminotransferase 19 U/L (15-37); Bilirubin, Total 0.5 mg/dL (0.2-1.0); Total Protein 8.4 g/dL (6.4-8.2)
== END 2019-11-11 22:12 | disposition left against medical advice (07) ==
LOC: ER 16:43 → EDBD 16:43 → ER 22:12
DX: K59.00 Constipation, unspecified (principal); E78.5 Hyperlipidemia, unspecified
CPT/HCPCS: 36415; 74176; 80053; 84484; 85025

== ENCOUNTER → 2020-02-27 | Outpatient (CLI) | payer MEDICARE, MEDICAID ==
[~2020-02-27] MED LIST changes: -ASPI-404 PO; +ASPI-543 PO
[2020-02-27 09:59] LABS: Basophils # (auto) 0 10 ^3/uL (0-0.2); Basophils % (auto) 0.4 % (0.0-2.0); Eosinophils # (auto) 0.1 10 ^3/uL (0-0.8); Eosinophils % (auto) 2.6 % (0.0-7.0); Hematocrit 43.1 % (41.0-53.0); Hemoglobin 14.3 g/dL (13.5-17.5); Lymphocytes # (auto) 1.5 10 ^3/uL (0.4-5.4); Lymphocytes % (auto) 29.4 % (10.0-50.0); Mean Corpuscular Hemoglobin 31.3 pg (28.0-32.0); Mean Corpuscular Hgb Conc. 33.2 g/dL (32.0-36.0); Mean Corpuscular Volume 94.5 fL (80.0-100.0); Monocytes # (auto) 0.7 10 ^3/uL (0-1.3); Monocytes % (auto) 12.8 % (0.0-12.0); Neutrophils # (auto) 2.8 10 ^3/uL (1.6-8.6); Neutrophils % (auto) 54.8 % (37.0-80.0); Nucleated Red Blood Cells % 0.1 %; Platelet Count (auto) 182 10^3/uL (140-450); Red Blood Cells 4.56 10^6/uL (4.5-5.90); Red Cell Distribution Width 13.8 % (11.8-14.3); White Blood Cell 5.2 10^3/uL (4.4-10.8)
[2020-02-27 10:04] LABS: Urine Bacteria NONE SEEN /hpf (None Seen); Urine Blood Negative /uL (Negative); Urine WBC 1 /hpf (0 - 3)
[2020-02-27 10:54] LABS: Albumin 3.8 g/dL (3.4-5.0); Potassium 4.1 mmol/L (3.5-5.1)
[2020-02-27 11:01] LABS: Free T4 (Free Thyroxine) 0.95 ng/dL (0.89-1.76); Prostate Specific Antigen 0.05 ng/mL (0.0-4.0)
[2020-02-27 11:02] LABS: Bilirubin, Total 0.7 mg/dL (0.2-1.0); Calcium 9.1 mg/dL (8.5-10.1); Total Protein 7.4 g/dL (6.4-8.2)
== END | disposition home or self-care (01) ==
LOC: LAB 09:20
PROVIDERS: ATTEND Internal Medicine
DX: I10 Essential (primary) hypertension (principal); K59.00 Constipation, unspecified; Z85.46 Personal history of malignant neoplasm of prostate
CPT/HCPCS: 36415; 80053; 80061; 81001; 84153; 84439; 84443; 85025; 85652

== ENCOUNTER → 2021-05-30 | Outpatient (CLI) | payer MEDICARE, MEDICAID ==
[~2021-05-30] MED LIST changes: -BENA5TAB5 PO; +BENA5TAB9 PO
[2021-05-30 15:21] LABS: Urine Blood Negative /uL (Negative); Urine Specific Gravity 1.011 (1.001-1.035)
[2021-05-30 15:23] LABS: Hematocrit 39.7 % (41.0-53.0); Hemoglobin 13.1 g/dL (13.5-17.5); Mean Corpuscular Hemoglobin 31.5 pg (28.0-32.0); Mean Corpuscular Hgb Conc. 33.1 g/dL (32.0-36.0); Mean Corpuscular Volume 95.2 fL (80.0-100.0); Red Blood Cells 4.17 10^6/uL (4.5-5.90); Red Cell Distribution Width 12.9 % (11.8-14.3); White Blood Cell 5.6 10^3/uL (4.4-10.8)
[2021-05-30 15:27] LABS: Albumin 3.4 g/dL (3.4-5.0); Calcium 8.5 mg/dL (8.5-10.1)
[2021-05-30 15:31] LABS: BUN/Creatinine Ratio 11.8; Bilirubin, Direct 0.2 mg/dL (0-0.2); Bilirubin, Total 0.6 mg/dL (0.2-1.0); Total Protein 7.4 g/dL (6.4-8.2)
[2021-05-30 15:54] LABS: Basophils % (manual) 0 (0.0-2.0); Blast Cells 0; Metamyelocytes % 0; Promyelocytes % 0; Reactive Lymphocytes 0
[2021-05-30 16:11] LABS: Free T4 (Free Thyroxine) 1.24 ng/dL (0.89-1.76)
[2021-05-30 16:12] LABS: Prostate Specific Antigen 0.05 ng/mL (0.0-4.0)
[2021-05-30 17:09] LABS: Band Neutrophils % (manual) 1; Eosinophils % (manual) 3 (0-7); Lymphocytes % (manual) 18 (10.0-50.0); Monocytes % (manual) 16 (0-12); Myelocytes % 1
== END | disposition home or self-care (01) ==
LOC: LAB 12:05
PROVIDERS: ATTEND Internal Medicine Cardiovascular Disease
DX: C61 Malignant neoplasm of prostate (principal); D51.3 Other dietary vitamin B12 deficiency anemia; I10 Essential (primary) hypertension; E11.9 Type 2 diabetes mellitus without complications; E55.9 Vitamin D deficiency, unspecified; D64.9 Anemia, unspecified; R00.2 Palpitations; R53.1 Weakness; R30.0 Dysuria
CPT/HCPCS: 36415; 80053; 80061; 80076; 81003; 82306; 82607; 83036; 84153; 84403; 84439; 85007; 85027

== ENCOUNTER → 2021-06-13 | Outpatient (CLI) | payer MEDICARE, MEDICAID | END | disposition home or self-care (01) | LOC: Rad HDHVI 08:55 | PROVIDERS: ATTEND Internal Medicine Cardiovascular Disease | DX: I10 Essential (primary) hypertension (principal) | CPT/HCPCS: 93306 ==